=== PATIENT | female | born 1950 | race Asian ===

== ENCOUNTER 2022-04-28 01:45 | Emergency (ER) | payer OTHER, MEDICAID ==
[~2022-04-28] VITALS: Ht 157.5 cm; Wt 52.2 kg
[2022-04-28 01:50] VITALS: BP 130/97
--- NOTE | 2022-04-28 01:51 | NUR ---
PT KELLEY ALS. TAKEN TO BED 11
--- NOTE | 2022-04-28 01:52 | NUR ---
Dr. Jamison examining patient.
--- NOTE | 2022-04-28 01:53 | NUR ---
Respiratory Therapist at bedside for respiratory intervention.
[2022-04-28] MEDS ORDERED: ALBUTEROL 0.083% 2.5 MG/3 ML NEBU INH ONE (01:55)
[2022-04-28] MEDS ORDERED: ALBUTEROL SULFATE/IPRATROPIU 3 ML SOL IH ONE (01:55)
--- NOTE | 2022-04-28 01:57 | NUR ---
Lizzie hyde in [facility] - 04/28/22 at 0202 by [email or web address] rt at bedside
--- NOTE | 2022-04-28 02:05 | NUR ---
71 Y/O FEMALE BIB by ALS. C/O shortness of breath x today . Per reported, patient had medical history of asthma, given Albuterol and Ativan EN ROUTE TO HOSP BY MEDIC, Oxygen sat INITIALLY 87 % - increase to 95 % WITH BREATHING TX. UNPROVOKED. AUDIBLE WHEEZES TO BILATEAL UPPER LOBES AND ACCESSORY MUSCLE USE; PT IS TACHYPNIC WITH SHALLOW RESPIRATIONS AND PRODUCTIVE COUGH, SPEAKING IN FRAGMENTED SENTENCES. A/OX4, GCS-15. AMBULATORY W/O ASSISTANCE. SKIN IS PINK/WAR/DRY. PMHx: Asthma NKA MEDS: ALBUTEROL
--- NOTE | 2022-04-28 02:11 | NUR ---
PT HAS IMPROVED RESPIARATIONS. PT HAS COUGH, MORE CALM, AND DEEPER RESPIATIONS. HR-100 RR-28 100% WITH BREATHING TX
[2022-04-28] MEDS ORDERED: predniSONE 20 MG TAB PO ONE (02:20)
[2022-04-28] MEDS ORDERED: PRED50TA2 PO (02:24)
[2022-04-28 05:35] VITALS: BP 134/96
--- NOTE | 2022-04-28 05:37 | NUR ---
Patient discharged with v/s stable. Written and verbal after care instructions given and explained. Patient alert, oriented and verbalized understanding of instructions. Ambulatory with steady gait. All questions addressed prior to discharge. ID band removed. Patient advised to follow up with PMD. Rx of PREDNISONE given. Patient educated on indication of medication including possible reaction and side effects. Opportunity to ask questions provided and answered. VSS, A/OX4, UNLABORED BREATHING, AMBLULATORY, AND CALM DEMEANOR.
--- NOTE | 2022-04-28 08:00 | NUR ---
PT STILL WAITING IN LOBBY. PT WAS D/C BY CALL OR CONTACT CENTRE MANAGER. UBER PROVIDED FOR PT AT THIS TIME.
== END 2022-04-28 05:37 | disposition home or self-care (01) ==
LOC: MED 01:45
DX: J45.909 Unspecified asthma, uncomplicated (principal); F17.200 Nicotine dependence, unspecified, uncomplicated; Z79.899 Other long term (current) drug therapy
CPT/HCPCS: 81025; 94640; 99283; J7512; J7613

== ENCOUNTER 2022-04-28 20:04 | Emergency (ER) | payer OTHER, MEDICAID ==
[~2022-04-28 20:04] MED LIST: PRED50TA2 PO
--- NOTE | 2022-04-28 20:45 | NUR ---
CALLED TO TRIAGE, NO ANSWER
--- NOTE | 2022-04-28 21:00 | NUR ---
CALLED TO TRIAGE, NO ANSWER
--- NOTE | 2022-04-28 21:15 | NUR ---
CALLED TO TRIAGE, NO ANSWER. PT LWBS
== END 2022-04-28 20:45 | disposition left against medical advice (07) ==
LOC: MED 20:04
DX: R06.02 Shortness of breath (principal); Z53.21 Procedure and treatment not carried out due to patient leaving prior to being seen by health care provider